=== PATIENT | female | born 1955 | race African-American/Black ===

== ENCOUNTER 2019-03-19 16:29 | Emergency (ER) | payer MEDICAID ==
[~2019-03-19] VITALS: Ht 167.6 cm; Wt 82.0 kg
[~2019-03-19 16:29] MED LIST: CLON0.1T PO; INSULIN; seroquel
[2019-03-19 17:00] VITALS: BP 121/54
== END 2019-03-19 18:24 | disposition left against medical advice (07) ==
LOC: ER 17:28
DX: M25.512 Pain in left shoulder (principal); R73.9 Hyperglycemia, unspecified; Z53.21 Procedure and treatment not carried out due to patient leaving prior to being seen by health care provider
CPT/HCPCS: 99283

== ENCOUNTER 2019-03-19 20:19 | Emergency (ER) | payer MEDICAID ==
[2019-03-19] MEDS ORDERED: OXYCODONE HCL/ACETAMINOPHEN 5/325MG TABLET PO ONE (20:30)
[2019-03-19 22:13] VITALS: BP 139/76
== END 2019-03-19 22:51 | disposition home or self-care (01) ==
LOC: ER 20:19
DX: M54.2 Cervicalgia (principal); M79.602 Pain in left arm; R07.89 Other chest pain; R51 Headache; I11.0 Hypertensive heart disease with heart failure; I50.9 Heart failure, unspecified; E11.9 Type 2 diabetes mellitus without complications; V09.00XA Pedestrian injured in nontraffic accident involving unspecified motor vehicles, initial encounter; Y93.01 Activity, walking, marching and hiking; Y92.410 Unspecified street and highway as the place of occurrence of the external cause
CPT/HCPCS: 99284

== ENCOUNTER 2019-03-20 11:21 | Emergency (ER) | payer MEDICAID ==
[~2019-03-20] VITALS: Ht 167.6 cm; Wt 96.0 kg
[2019-03-20 13:40] VITALS: BP 127/90
[2019-03-20] MEDS ORDERED: ACETAMINOPHEN 325MG TABLET PO ONE (15:45)
== END 2019-03-20 22:37 | disposition home or self-care (01) ==
LOC: ER 11:21
DX: R68.89 Other general symptoms and signs (principal); F17.200 Nicotine dependence, unspecified, uncomplicated; I11.0 Hypertensive heart disease with heart failure; I50.9 Heart failure, unspecified; E11.9 Type 2 diabetes mellitus without complications
CPT/HCPCS: 99282